=== PATIENT | male | born 1965 | race Caucasian/White ===

== ENCOUNTER 2020-07-26 17:01 | Emergency (ER) | payer OTHER, MEDICAID, SELFPAY ==
[2020-07-26] VITALS (62 sets, daily range): BP systolic 89–145; BP diastolic 51–95; PULSE 62–102; RESP 10–29; TEMP 36–37.1; O2SAT 83–97
--- NOTE | 2020-07-26 17:00 | RT.EKG_ITS ---
APPROVED REPORT Exam: Resting ECG Patient Location: E HR:101 bpm ECG Measurements Heart Rate 101 AXIS HI 137 P 42 QRSd 94 QRS 15 QT 339 T 66 QTc 439 Conclusion Sinus tachycardia...rate> 99
--- NOTE | 2020-07-26 17:45 | DI.CT_ITS ---
EXAM: CT CHEST PE CTA CLINICAL HISTORY: hemoptysis, lung cancer TECHNIQUE: COMPARISON: No exams were available for comparison FINDINGS: CT angiography of the chest was performed with bolus infusion of 100 cc of Omnipaque 350. The patien t reportedly has a history of lung carcinoma. Images obtained through the upper abdomen show grossly unremarkable appearance of visualized portions of the liver and spleen. Adrenals nonvisualized. There is a left hilar mass measuring up to about 5 cm in diameter with resultant left lower lobe michael apse. There is a small left pleural effusion. Left lower lobe bronchus appears markedly narrowed. Left upper lobe bronchus mildly narrowed. The hilar mass extends into the subcarinal region. No pre tracheal adenopathy. Right lung is predominantly clear with underlying emphysematous changes. No right pleural effusion. There are tree-in-bud opacities and minimal consolidative opacities in the left upper lobe, the findi ngs are suggestive of pneumonia. Appropriate follow-up studies requested. No other suspicious pulmo nary opacities identified. There is no evidence of pulmonary embolic disease. No thoracic aortic aneurysm or dissection. No gross supraclavicular or axillary adenopathy. Unremarkable appearance of the thyroid. IMPRESSION: No evidence of pulmonary embolic disease. Findings suggesting left upper lobe infectious process, appropriate follow-up studies requested. Findings of known left lower lobe lung carcinoma extending into the central mediastinum with collapse of the left lower lobe. RADIATION DOSE DELIVERED: 323.86mGy.cm Total DLP
--- NOTE | 2020-07-26 17:59 | W.ED.GENAD ---
Discharge Plan Disposition Patient Disposition: [facility] Condition: Serious Discharge Details Clinical Impression: Hemoptysis, Pneumonia, Squamous cell carcinoma of lung, stage IV Primary Care Provider: None,None ED Provider: Jesse Leslie and New Rx's Prescriptions: No Action prednisone 10 mg Tablet 10 mg PO DAILY RF: 0 gabapentin 600 mg Tablet 600 mg PO TID RF: 0 morphine 15 mg Tablet 15 mg PO Q6H PRN PRNRF: 0 amoxicillin-pot clavulanate [Augmentin] 875-125 mg Tablet 875 tab PO BID RF: 0 lorazepam 1 mg Tablet 1 mg PO Q6H PRN PRNRF: 0 Medical Decision Making <Gonzalez Romero MD - Last Filed: 07/26/20 21:49> 1900 -- 55-year-old male with history of 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 He has associated nausea. Patient was recently diagnosed with pneumonia and has been taking Augmentin. Patient has had increasing shortness of breath from his baseline also some right-sided chest pain. Consider acute pulmonary embolism. Plan to obtain CT of the chest. Consider worsening tumor burden and bleeding from tumor. Labs reviewed and hemoglobin 12.2. Normal platelets. Normal coags. Leukocytosis noted. Normal lactate. 1926 --CT of the chest interpreted by radiology:IMPRESSION: 1. Left lower lobe collapse which appears postobstructive secondary to a left hilar mass. This left hilar mass is consistent with patient's provided history of lung neoplasm. 2. Encasement of left lower lobe bronchus and left lower lobe pulmonary artery. 3. No pulmonary arterial embolism. 4. Left upper lobe tree-in-bud opacification suggesting developing left upper lobe infiltrate. 5. Emphysematous lung changes and bronchiectasis. 6. Cardiomegaly. Left ventricular dilatation. 7. Splenomegaly. 8. No previous study for comparison. I called [facility] transfer center and requested emergent transfer. CT sent for review. Awaiting callback. -- Will give ceftriaxone 1g IV and doxycycline 100mg IV to cover for pneumonia given infiltrate. COVID test sent and pending. Called [facility] to request transfer upon receipt of CT result. --Patient reassessed and continues to have small volume hemoptysis intermittently. Patient saturating low to mid 90s on 2 L nasal cannula with no respiratory distress. 2109 -- Spoke with [facility] oncology and discussed presentation and course and requested transfer. CT sent for review. Requesting hospitalist at [facility] depreciating conversation. 2144 -- Dr. Mayo to accept patient to be transferred to ED. Lab Data Lab results reviewed: Yes I reviewed the patient's lab results. Labs: 07/26/20 18:20 Blood Blood Culture - Pending 07/26/20 17:45 Blood Blood Culture - Pending Laboratory Tests Range/Units 07/26/20 07/26/20 07/26/20 17:45 17:45 17:45 WBC (4.4-10.8) 10^3/uL 15.02 H RBC (4.36-5.78) 10^6/uL 4.21 L Hgb (13.5-17.5) g/dL 12.2 L Hct (40.0-50.0) % 37.6 L MCV (80-95) fL 89.3 MCH (27.0-33.0) pg 29.0 MCHC (32.0-36.0) % 32.4 RDW (11.8-14.1) % 12.9 Plt Count (130-400) 10^3/uL 304 MPV (8.0-11.0) fL 9.1 Immature Gran % 1.1 Neutrophils % 88.2 Lymphocytes % 3.9 Monocytes % 6.1 Eosinophils % 0.6 Basophils % 0.1 Nucleated RBC % % 0 Absolute Neutrophils (1.2-6.7) 10^3/uL 13.25 H Absolute Lymphocytes (1.2-3.4) 10^3/uL 0.59 L Absolute Monocytes (0.1-0.8) 10^3/uL 0.92 H Absolute Eosinophils (0.0-0.7) 10^3/uL 0.09 Absolute Basophils (0.0-0.2) 10^3/uL 0.02 PT (9.3-11.0) sec INR (0.9-1.1) APTT (21.0-27.5) sec VBG Lactate (0.6-1.4) mmol/L 1.1 Sodium (136-145) mmol/L 133 L Potassium (3.5-5.1) mmol/L 4.3 Chloride (98-107) mmol/L 101 Carbon Dioxide (21.0-32.0) mmol/L 24.5 Anion Gap (3-11) mmol/L 7.5 BUN (7-18) mg/dL 8 Creatinine (0.70-1.30) mg/dL 1.04 Estimated GFR/1.73 m2 (mL/min/1.73m2) >= 60.00 Glucose (74-106) mg/dL 113 H Calcium (8.5-10.1) mg/dL 8.5 Total Bilirubin (0.2-1.0) mg/dL 0.4 AST (15-37) U/L 14 L ALT (16-63) U/L 14 L Alkaline Phosphatase (46-116) U/L 90 Total Protein (6.4-8.2) g/dL 7.2 Albumin (3.4-5.0) g/dL 2.6 L Patient ABO/Rh Antibody Screen Range/Units 07/26/20 07/26/20 17:45 17:45 WBC (4.4-10.8) 10^3/uL RBC (4.36-5.78) 10^6/uL Hgb (13.5-17.5) g/dL Hct (40.0-50.0) % MCV (80-95) fL MCH (27.0-33.0) pg MCHC (32.0-36.0) % RDW (11.8-14.1) % Plt Count (130-400) 10^3/uL MPV (8.0-11.0) fL Immature Gran % Neutrophils % Lymphocytes % Monocytes % Eosinophils % Basophils % Nucleated RBC % % Absolute Neutrophils (1.2-6.7) 10^3/uL Absolute Lymphocytes (1.2-3.4) 10^3/uL Absolute Monocytes (0.1-0.8) 10^3/uL Absolute Eosinophils (0.0-0.7) 10^3/uL Absolute Basophils (0.0-0.2) 10^3/uL PT (9.3-11.0) sec 11.0 INR (0.9-1.1) 1.1 APTT (21.0-27.5) sec 27.3 VBG Lactate (0.6-1.4) mmol/L Sodium (136-145) mmol/L Potassium (3.5-5.1) mmol/L Chloride (98-107) mmol/L Carbon Dioxide (21.0-32.0) mmol/L Anion Gap (3-11) mmol/L BUN (7-18) mg/dL Creatinine (0.70-1.30) mg/dL Estimated GFR/1.73 m2 (mL/min/1.73m2) Glucose (74-106) mg/dL Calcium (8.5-10.1) mg/dL Total Bilirubin (0.2-1.0) mg/dL AST (15-37) U/L ALT (16-63) U/L Alkaline Phosphatase (46-116) U/L Total Protein (6.4-8.2) g/dL Albumin (3.4-5.0) g/dL Patient ABO/Rh O Positive Antibody Screen Negative <Jesse Leslie MD - Last Filed: 07/27/20 01:45> Patient signed out to me pending transfer to [facility]. He has remained stable. He does need to be reminded to not lie on his right side. He either needs to be upright or on the left side or he begins to desaturate. He has not had any significant hemoptysis here. Repeat hemoglobin down to one-point only. Heart rate and blood pressure at time of transfer normal. Patient is sent with medic in case of decompensation during transport, though he has been completely stable for hours here. Lab Data Lab results reviewed: Yes I reviewed the patient's lab results. HPI <Gonzalez Romero MD - Last Filed: 07/26/20 21:49> General Mode of arrival: ambulatory. Date/Time Provider Initiated Documentation: 07/26/20 17:16. Limitations to Documentation: no limitations. Information obtained by: patient. HPI Narrative: 55-year-old male presents with chief complaint of coughing up blood. Patient notes he has a history of lung cancer stage IV squamous cell carcinoma left lung with bone and soft tissue metastasis, has been coughing up small amounts of blood every morning for the past month or so. He was seen on July 22 at [facility] and diagnosed with pneumonia and started on Augmentin which he has been taking. He now notes today he has been coughing up blood more frequently and it has not . States he is coughing up blood about every 1/2 hour today. No modifiers. He does note some associated right-sided chest discomfort. Related Data Home Medications Medication Instructions Recorded Confirmed amoxicillin-pot clavulanate 875 tab PO BID 07/26/20 07/26/20 [Augmentin] gabapentin 600 mg PO TID 07/26/20 07/26/20 lorazepam 1 mg PO Q6H PRN PRN 07/26/20 07/26/20 morphine 15 mg PO Q6H PRN PRN 07/26/20 07/26/20 prednisone 10 mg PO DAILY 07/26/20 07/26/20 Allergies Allergy/AdvReac Type Severity Reaction Status Date / Time No Known Drug Allergies Allergy Unverified 07/26/20 20:26 General Stated Complaint: Abd Prob RANJITH: 3 Review of Systems <Gonzalez Romero MD - Last Filed: 07/26/20 21:49> All systems reviewed & are unremarkable except as noted in HPI and below Constitutional Constitutional: Reports chills Cardiovascular Cardiovascular: Reports as per HPI and Reports chest pain Respiratory Respiratory: Reports cough Gastrointestinal Gastrointestinal: Reports nausea PFSH <Gonzalez Romero MD - Last Filed: 07/26/20 21:49> Social History Smoking/Tobacco Use Status: Former Tobacco Use Smoking risk assessment performed?: Yes Alcohol Intake: current Alcohol Intake frequency: a few times a week Drug use: Never Substance use type: does not use Do you feel safe at home: Yes Do you feel safe in your relationship?: Yes Exam <Gonzalez Romero MD - Last Filed: 07/26/20 21:49> Const General: cooperative and no acute distress HENNH Mouth: moist mucous membranes Eyes Conjunctivae: normal conjunctivae Sclera: normal sclerae Neck Neck: trachea midline and supple Resp Auscultation: clear to auscultation bilaterally, no rales, no rhonchi and no wheezes Cardio Rate: tachycardic Rhythm: regular rhythm GI Palpation: soft, not firm, no guarding, no masses, not rigid and nontender Skin General skin exam: no rashes or lesions noted Neuro General: patient alert, patient awake, patient oriented x3 and tone normal Extrem General: no edema Psych Appearance: grossly normal Mental Status: mental status grossly normal Speech and Movement: speech and movement normal Course <Gonzalez Romero MD - Last Filed: 07/26/20 21:49> Vital Signs Vital signs: Vital Signs Temperature 36.0 C L 07/26/20 17:15 Pulse 102 H 07/26/20 17:15 Respiratory Rate 24 07/26/20 17:15 Blood Pressure 116/78 07/26/20 17:15 Pulse Oximetry 97 07/26/20 17:15 Temperature 37.1 C 07/26/20 17:46 Temperature Source Oral 07/26/20 17:46 Pulse 102 H 07/26/20 17:15 Respiratory Rate 24 07/26/20 17:15 Respiratory Effort Non-Labored 07/26/20 17:53 Blood Pressure 116/78 07/26/20 17:15 Blood Pressure Position Supine 07/26/20 17:15 Pulse Oximetry 97 07/26/20 17:15 Oxygen Delivery Method Room Air 07/26/20 17:15 Oxygen Flow Rate 0 07/26/20 17:15 Pain Level 0 07/26/20 17:15 Lab/Test Results Lab/Test Results: 07/26/20 17:56 Blood Blood Culture - Pending 07/26/20 17:56 Blood Blood Culture - Pending Sign Out <Gonzalez Romero MD - Last Filed: 07/26/20 21:49> Sign Out Data: Sign Out Comment: Follow-up transfer request with [facility] Last updated by Gonzalez Romero MD at 07/26/20 20:44
[2020-07-26 18:06] LABS: Lactate 1.1 mmol/L (0.6-1.4)
[2020-07-26 18:09] LABS: Abs Immature Grans 0.17 10^3/uL (0.0-0.06); Absolute Basophil Count 0.02 10^3/uL (0.0-0.2); Absolute Eosinophil Count 0.09 10^3/uL (0.0-0.7); Absolute Monocyte Count 0.92 10^3/uL (0.1-0.8); Basophils % 0.1; Eosinophils % 0.6; HCT 37.6 % (40.0-50.0); HGB 12.2 g/dL (13.5-17.5); Immature Grans % 1.1; Lymphocytes % 3.9; MCHC 32.4 % (32.0-36.0); MCV 89.3 fL (80-95); MPV 9.1 fL (8.0-11.0); Monocytes % 6.1; Neutrophils % 88.2; Nucleated RBC 0 %; Platelet Count 304 10^3/uL (130-400); RBC 4.21 10^6/uL (4.36-5.78); RDW 12.9 % (11.8-14.1); WBC 15.02 10^3/uL (4.4-10.8)
[2020-07-26 18:12] LABS: Absolute Lymphocyte Count 0.59 10^3/uL (1.2-3.4); Absolute Neutrophil Count 13.25 10^3/uL (1.2-6.7)
[2020-07-26 18:22] LABS: INR 1.1 (0.9-1.1); PTT Activated 27.3 sec (21.0-27.5)
[2020-07-26 18:24] LABS: ALT 14 U/L (16-63); AST 14 U/L (15-37); Albumin 2.6 g/dL (3.4-5.0); Alkaline Phosphatase 90 U/L (46-116); Anion Gap 7.5 mmol/L (3-11); BUN 8 mg/dL (7-18); Bilirubin, Total 0.4 mg/dL (0.2-1.0); CO2 24.5 mmol/L (21.0-32.0); CREATININE 1.04 mg/dL (0.70-1.30); Calcium 8.5 mg/dL (8.5-10.1); Chloride 101 mmol/L (98-107); Glucose 113 mg/dL (74-106); Potassium 4.3 mmol/L (3.5-5.1); Sodium 133 mmol/L (136-145); Total Protein 7.2 g/dL (6.4-8.2)
[2020-07-26] MEDS: Ondansetron 4 MG/2 ML VIAL IVP (18:26)
[2020-07-26] MEDS: Omnipaque 350 MG/ML 100 ML BTL IJ (18:52)
[2020-07-26] MEDS: Normal Saline - Diluent 50 ML VIAL IV (18:52)
[2020-07-26] MEDS: Normal Saline Flush 10 ML SYR IVP (18:53)
--- NOTE | 2020-07-26 19:19 | DI.VRAD_ITS ---
PROCEDURE INFORMATION: Exam: CT Angiography Chest With Contrast Exam date and time: 07/26/2020 5:58 PM Age: 55 years old Clinical indication: Other: Hemoptysis, lung cancer TECHNIQUE: Imaging protocol: Computed tomographic angiography of the chest with intravenous contrast. 3D rendering (Not supervised by radiologist): MIP and/or 3D reconstructed images were created by the technologist. Contrast material: OMNIPAQUE 350; Contrast volume: 100 ml; Contrast route: INTRAVENOUS (IV); COMPARISON: No relevant prior studies available. FINDINGS: Pulmonary arteries: No pulmonary arterial embolism is evident. Left lower lobe pulmonary artery is encased and severely narrowed. Aorta: Unremarkable. No aortic aneurysm. No aortic dissection. Lungs: Emphysematous lung disease bilaterally. Bilateral moderate bronchiectasis. Scattered areas of bronchial wall thickening. Left upper lobe tree-in-bud opacification suggesting a developing left upper lobe infiltrate. Left lower lobe collapse which appears to be postobstructive. Pleural space: Unremarkable. No pneumothorax. No significant pleural effusion. Heart: Mild cardiac enlargement. Left ventricular dilatation. No pericardial effusion. Mediastinal space: Left hilar masslike confluence consistent with an area of lung mass as suggested by patient's history. This measures at least 5.2 x 3.4 x 3.5 cm on axial image 274 and coronal image 58. . There appears to be encasement and partial compression of the right lower lobe bronchus. Lymph nodes: Enlarged subcarinal lymph node measuring approximately 19 x 16 mm. Left hilar confluent lymph node enlargement and masslike fullness. Spleen: Nonspecific moderate splenomegaly. Bones/joints: Unremarkable. No acute fracture. Soft tissues: Unremarkable. IMPRESSION: 1. Left lower lobe collapse which appears postobstructive secondary to a left hilar mass. This left hilar mass is consistent with patient's provided history of lung neoplasm. 2. Encasement of left lower lobe bronchus and left lower lobe pulmonary artery. 3. No pulmonary arterial embolism. 4. Left upper lobe tree-in-bud opacification suggesting developing left upper lobe infiltrate. 5. Emphysematous lung changes and bronchiectasis. 6. Cardiomegaly. Left ventricular dilatation. 7. Splenomegaly. 8. No previous study for comparison. Dictated and Authenticated by: Gamal Estrada MD. Ordering:ROSIO Roth MD
[2020-07-26] MEDS: guaiFENesin/CODEINE PHOSPHATE 10 ML CUP PO (20:41)
[2020-07-26] MEDS: cefTRIAXone 1 GM/50 ML BAG IVPB (21:57)
--- NOTE | 2020-07-26 22:11 | NUR.NOTE ---
Nursing Note:Patient updated on status of transfer to [facility]. One person to transfer ahead of him. Probable wait for that ambulance to return. Comfort measures offered. VSS, decreased cough after Robitussin/Codeine.
[2020-07-26] MEDS: DOXYCYCLINE 100 MG in Normal Saline 100 ML IVPB (22:33)
[2020-07-26 22:38] LABS: HGB 10.9 g/dL (13.5-17.5)
--- NOTE | 2020-07-26 23:45 | NUR.NOTE ---
Nursing Note:Reviewed best position for patient to lay in for optimal oxygenation and bleeding prevention with patient. When laying on his right O2 sat will drop to 88 /90% with O2 2L NC and B/P will drop to 90's systolic. When laying on his left side systolic pressure 109 to 120's and O2 sat up to 92/94%. Cough remains much less frequent and patient is able to rest. Patient updated transport will be approx. 0100. Hgb. was rechecked and has dropped slightly.
[2020-07-27] VITALS (12 sets, daily range): BP systolic 81–117; BP diastolic 46–76; PULSE 61–69; RESP 12–19; O2SAT 86–97
--- NOTE | 2020-07-27 00:44 | NUR.NOTE ---
Nursing Note:Monitor shows SBP 80. Went in to check on patient. Patient had rolled onto his right side, sleeping. Coughing episodes have started to become more frequent again. Discussed with Dr. Leslie orders received. Patient rolled back onto his left side SBP increased to 117. O2 remains at 3L. Patient has no c/o.
[2020-07-27] MEDS: guaiFENesin/CODEINE PHOSPHATE 10 ML CUP PO (01:00)
[2020-07-28 02:50] LABS: COVID-19 RT-PCR UVMMC Result Negative (Negative)
--- NOTE | 2020-07-28 10:02 | NUR.NOTE ---
Patient transferred to [facility]. Covid result faxed to [phone].Nursing Note:
== END 2020-07-27 01:50 | disposition short-term general hospital (02) ==
PROVIDERS: Student in an Organized Health Care Education/Training Program; Emergency Provider Emergency Medicine
DX: R04.2 Hemoptysis (principal); J18.9 Pneumonia, unspecified organism; C34.92 Malignant neoplasm of unspecified part of left bronchus or lung; Z79.899 Other long term (current) drug therapy; Z03.818 Encounter for observation for suspected exposure to other biological agents ruled out; Z87.891 Personal history of nicotine dependence
CPT/HCPCS: 36415; 71275; 80053; 86850; 86900; 86901; 87040; 93005; 96365; 96367; 96375; 99285; U0003; 83605; 85018; 85025; 85610; 85730; 93010; J0696; J2405; J3490